=== PATIENT | male | born 1950 | race Hispanic/Latino ===

== ENCOUNTER → 2018-06-02 | Outpatient (CLI) | payer OTHER | END | disposition home or self-care (01) | LOC: RAH 08:25 | PROVIDERS: ATTEND Internal Medicine Gastroenterology | DX: R07.9 Chest pain, unspecified (principal) | CPT/HCPCS: 74220 ==

== ENCOUNTER → 2022-11-30 | Outpatient (CLI) | payer MEDICARE ==
[2022-11-30 22:59] VITALS: PULSE 66; RESP 18
[2022-11-30 23:30] VITALS: PULSE 58; RESP 16
[2022-12-01] VITALS (11 sets, daily range): PULSE 48–58; RESP 14–22
== END | disposition home or self-care (01) ==
LOC: SLP 20:34
PROVIDERS: ATTEND Nurse Practitioner Family
DX: G47.33 Obstructive sleep apnea (adult) (pediatric) (principal)
CPT/HCPCS: 95810